=== PATIENT | male | born 1945 | race Caucasian/White ===

== ENCOUNTER 2019-08-16 07:40 | Outpatient (CLI) | payer MEDICARE, BC ==
[2019-08-16 07:58] LABS: EOSINOPHILS # (AUTO) 0.1 10^3/uL (0.0-0.7); EOSINOPHILS % (AUTO) 2.9 %; HGB - HEMOGLOBIN 15.4 g/dL (14.0-18.0); LYMPHOCYTES # (AUTO) 1.4 10^3/uL (1.5-3.5); LYMPHOCYTES % (AUTO) 34.1 %; MEAN CORPUSCULAR HEMOGLOBIN 30.5 pg (27.0-31.0); MEAN CORPUSCULAR HGB CONC 34.2 g/dL (32.0-36.0); MEAN CORPUSCULAR VOLUME 89.1 fL (80.0-94.0); MEAN PLATELET VOLUME 9.5 fL (7.4-11.4); MONOCYTES # (AUTO) 0.4 10^3/uL (0.0-1.0); MONOCYTES % (AUTO) 10.5 %; NEUTROPHILS # (AUTO) 2.1 10^3/uL (1.5-6.6); NEUTROPHILS % (AUTO) 51.3 %; PLT - PLATELET COUNT 155 10^3/uL (130-450); RED BLOOD COUNT 5.05 10^6/uL (4.70-6.10); WHITE BLOOD COUNT 4.1 x10^3/uL (4.8-10.8)
[2019-08-16 08:11] LABS: ALBUMIN 4.5 g/dL (3.2-5.5); ALBUMIN/GLOBULIN RATIO 1.9 (1.0-2.2); ALKALINE PHOSPHATASE 64 IU/L (42-121); ALT ALANINE AMINOTRANSFERASE 13 IU/L (10-60); AST ASPARTATE AMINOTRANSFERASE 21 IU/L (10-42); BILIRUBIN,TOTAL 1.2 mg/dL (0.2-1.0); BUN - BLOOD UREA NITROGEN 18 mg/dL (6-20); CALCIUM 8.9 mg/dL (8.5-10.3); CARBON DIOXIDE - CO2 30 mmol/L (21-32); CHLORIDE 102 mmol/L (101-111); CHOLESTEROL 214 mg/dL; CREATININE 0.9 mg/dL (0.6-1.2); GLUCOSE 105 mg/dL (70-100); HDL CHOLESTEROL 54 mg/dL; LDL CHOLESTEROL,CALCULATED 142 mg/dL; LDL/HDL RATIO 2.6 (<3.6); MAGNESIUM 2.3 mg/dL (1.7-2.8); SODIUM 139 mmol/L (135-145); TOTAL PROTEIN 6.9 g/dL (6.7-8.2); VLDL CHOLESTEROL 18 mg/dL
== END 2019-08-16 07:41 | disposition home or self-care (01) ==
LOC: LAB 07:40
PROVIDERS: ATTEND Nurse Practitioner
DX: I10 Essential (primary) hypertension (principal); Z79.899 Other long term (current) drug therapy; R25.1 Tremor, unspecified
CPT/HCPCS: 36415; 80053; 80061; 83721; 83735; 85025

== ENCOUNTER 2021-07-10 14:18 | Emergency (ER) | payer BC, MEDICARE ==
--- NOTE | 2021-07-10 14:37 | ED Physician Documentation ---
PD HPI FOCAL NEURO - Stated complaint Stated Complaint: LOSS OF SPEECH - Chief complaint Chief Complaint: Neuro - History obtained from History obtained from: Patient - History of Present Illness Timing - onset: Yesterday (while on trip in [place]. Occured just prior to needing to go to airport so did not seek care there, but came to ER after arriving at airport this morning.), How many weeks ago (1 week ago while taking a walk, and about a month ago while talking on the phone.) Timing - duration: Minutes Timing - details: Abrupt onset, Intermittant Severity of deficit: Moderate (He has had 3 episodes over a month where he was speaking and noted a feeling of lightheadedness and then had difficulty with word search and then expressing sentences. He was able to articulate the words once they came out. No focal weakness or loss of vision. Each episode lasted 2-3 minutes.) Weakness: No: Face, Arm, Leg Numbness: No: Face, Arm, Leg Associated symptoms: No: Headache, Nausea / vomiting, Head injury, Chest pain Contributing factors: negative: Anticoagulated, Vascular dz, Atrial fibrillation Similar symptoms before: No diagnosis Recently seen: Not recently seen Review of Systems Constitutional: denies: Fever Eyes: denies: Loss of vision, Decreased vision Nose: denies: Rhinorrhea / runny nose, Congestion Throat: denies: Sore throat Cardiac: denies: Chest pain / pressure, Palpitations Respiratory: denies: Cough GI: denies: Nausea, Vomiting, Diarrhea Neurologic: denies: Focal weakness, Numbness, Near syncope, Headache, Head injury PD PAST MEDICAL HISTORY - Past Medical History Cardiovascular: None Respiratory: None Neuro: Parkinson's Endocrine/Autoimmune: None GI: None - Present Medications Home Medications: Ambulatory Orders Medication Instructions Recorded Confirmed Diazepam [Valium] 5 mg PO PRN PRN 07/10/21 07/10/21 lisinopriL [Zestril] 1 tab ORAL DAILY 07/10/21 07/10/21 rOPINIRole [Requip] 0.25 mg PO QPM 07/10/21 07/10/21 - Allergies Allergies/Adverse Reactions: Allergies Allergy/AdvReac Type Severity Reaction Status Date / Time No Known Drug Allergies Allergy Verified 07/10/21 14:30 PD ED PE NORMAL - Vitals Vital signs reviewed: Yes - General General: Alert and oriented X 3, No acute distress, Well developed/nourished - HEENT HEENT: PERRL, EOMI, Pharynx benign - Neck Neck: Supple, no meningeal sign, No adenopathy, No bruit - Cardiac Cardiac: RRR, No murmur - Respiratory Respiratory: Clear bilaterally - Derm Derm: Normal color, Warm and dry - Neuro Neuro: Alert and oriented X 3, digital communications manager 2-12 intact, No motor deficit, No sensory deficit, Normal speech, Other Eye Opening: Spontaneous Motor: Obeys Commands Verbal: Oriented GCS Score: 15 NIHSS - Level of Consciousness Level of consciousness: (0) Alert, Keenly responsive LOC Questions: (0) Answers both Q's correct LOC Commands: (0) Performs both correctly - Gaze Best Gaze: (0) Normal - Visual Visual: (0) No loss - Facial Palsy Facial Palsy: (0) Normal, symmetrical movement - Motor Arms (both separate) Motor Arm (right): (0) No drift Motor Arm (left): (0) No drift - Motor Legs (both separate) Motor Leg (right): (0) No drift Motor Leg (left): (0) No drift - Limb Ataxia Limb Ataxia: (0) Absent - Sensory Sensory: (0) Normal - Best Language Best Language: (0) No aphasia - Dysarthria Dysarthria: (0) Normal - Extinction and Inattention (formally neg Extinction and inattention: (0) No abnormality - Total Score/Results Total Score/Result: 0 Results - Vitals Vitals: Vital Signs - 24 hr 07/10/21 07/10/21 07/10/21 14:26 14:37 16:36 Temperature 36.2 C L Heart Rate 60 55 L 53 L Respiratory 16 18 14 Rate Blood Pressure 148/52 H 137/58 H 130/60 O2 Saturation 100 100 100 Oxygen O2 Source Room air - EKG (time done) 15:16 Rate: Rate (enter#) Rhythm: NSR [place]: Normal Intervals: Normal NV QRS: Normal Ischemia: Normal ST segments. No: ST elevation c/w ischemia, ST depression - Labs Labs: Laboratory Tests 07/10/21 07/10/21 15:29 15:29 WBC 4.2 L RBC 4.44 L Hgb 13.4 L Hct 40.3 L MCV 90.8 MCH 30.2 MCHC 33.3 RDW 13.2 Plt Count 139 MPV 10.2 Neut # (Auto) 2.6 Lymph # (Auto) 0.9 L [place] # (Auto) 0.5 Eos # (Auto) 0.2 Baso # (Auto) 0.0 Absolute Nucleated RBC 0.00 Nucleated RBC % 0.0 Sodium 140 Potassium 3.9 Chloride 102 Carbon Dioxide 30 Anion Gap 8.0 BUN 24 H Creatinine 0.9 Estimated GFR (MDRD) 82 L Glucose 91 Calcium 9.0 Total Bilirubin 0.6 AST 25 ALT 16 Alkaline Phosphatase 61 Total Protein 6.6 L Albumin 4.3 Globulin 2.3 Albumin/Globulin Ratio 1.9 Lipase 27 - Rads (name of study) head and neck angio Radiology: Prelim report reviewed (No hemorrhage, masses, midline shift or areas of infarction. No flow limitations in anterior nor posterior circulations. No acute process.), See rad report PD MEDICAL DECISION MAKING - ED course Complexity details: reviewed results (No acute structural abnormality on the head CT. No flow limitations in the neck or head. We will treat with aspirin daily and have him follow-up with his neurologist.), considered differential (Expressive aphasia for several minutes that resolved yesterday and the week prior. Concerning for TIA. Does not sound seizure-like. Will evaluate with head and neck CTA as well as labs.), d/w patient Departure - Departure Disposition: 01 Home, Self Care Clinical Impression: Expressive aphasia, TIA (transient ischemic attack) Condition: Stable Record reviewed to determine appropriate education?: Yes Instructions: ED Transient Ischemic Attack Follow-Up: Luz Houston MD [Primary Care Provider] - Comments: Your head and neck CT scans did not show any structural abnormalities such as tumors bleeding or obvious prior strokes. There are no flow limitations in the neck or head on the dye contrast aspect of the scan. This does not really assess the idea of small vessel abnormalities that may have flow limitations intermittently. (TIA). Be sure to maintain good hydration. Continue usual medications. Add a baby aspirin 81 mg daily regularly. Follow-up with your neurologist and primary care regarding any further recommendations or treatments. Return if recurrent symptoms.
[2021-07-10] MEDS ORDERED: SODIUM CHLORIDE 0.9% 1,000 ML IV STA (15:06)
[2021-07-10] MEDS ORDERED: IOVERSOL 320 100 ML VIAL IVP ONE ×2 (15:19→16:21)
[2021-07-10 15:41] LABS: BASOPHILS % (AUTO) 0.5 %; EOSINOPHILS # (AUTO) 0.2 10^3/uL (0.0-0.7); EOSINOPHILS % (AUTO) 3.8 %; HCT - HEMATOCRIT 40.3 % (42.0-52.0); HGB - HEMOGLOBIN 13.4 g/dL (14.0-18.0); LYMPHOCYTES # (AUTO) 0.9 10^3/uL (1.5-3.5); LYMPHOCYTES % (AUTO) 22.1 %; MEAN CORPUSCULAR HEMOGLOBIN 30.2 pg (27.0-31.0); MEAN CORPUSCULAR HGB CONC 33.3 g/dL (32.0-36.0); MEAN CORPUSCULAR VOLUME 90.8 fL (80.0-94.0); MEAN PLATELET VOLUME 10.2 fL (7.4-11.4); MONOCYTES # (AUTO) 0.5 10^3/uL (0.0-1.0); MONOCYTES % (AUTO) 12.4 %; NEUTROPHILS # (AUTO) 2.6 10^3/uL (1.5-6.6); NEUTROPHILS % (AUTO) 61.2 %; PLT - PLATELET COUNT 139 10^3/uL (130-450); RED BLOOD COUNT 4.44 10^6/uL (4.70-6.10); RED CELL DISTRIBUTION WIDTH 13.2 % (12.0-15.0); WHITE BLOOD COUNT 4.2 x10^3/uL (4.8-10.8)
[2021-07-10 15:52] LABS: ALBUMIN 4.3 g/dL (3.2-5.5); ALBUMIN/GLOBULIN RATIO 1.9 (1.0-2.2); BILIRUBIN,TOTAL 0.6 mg/dL (0.2-1.0); CREATININE 0.9 mg/dL (0.6-1.2); POTASSIUM 3.9 mmol/L (3.5-5.0); TOTAL PROTEIN 6.6 g/dL (6.7-8.2)
--- NOTE | 2021-07-10 16:35 | CT Report ---
PROCEDURE: ANGIO NECK W INDICATIONS: L sided facial droop, L neck pain CONTRAST: IV CONTRAST: Optiray 320 ml: 80 PO CONTRAST: *NO PO CONTRAST TECHNIQUE: After the administration of intravenous contrast, 1.5 mm axial sections acquired from the aortic arch to the [place] of [place]. Coronal 3-D maximum intensity projection (MIP) and/or volume rendering ref ormats were then performed. For radiation dose reduction, the following was used: automated exposur e control, adjustment of mA and/or kV according to patient size. COMPARISON: MRA head 07/10/2021. FINDINGS: Image quality: Excellent. Carotid system: The great vessels demonstrate a conventional anatomy as they arise from the aortic a rch. The origins of the common carotid arteries appear patent. The common carotid arteries demonstr ate normal calibers and courses. The bifurcation regions appear normal bilaterally. The internal ca rotid arteries demonstrate normal caliber and course. Calcifications present left artery stenosis. Posterior circulation: The origins of the vertebral arteries appear patent. The more superior porti ons of the vertebral arteries demonstrate normal course and caliber. They join to form a normal appe aring basilar artery. Posterior circulation is codominant. Soft tissues: Visualized neck soft tissues demonstrate no suspicious abnormalities. The thyroid is normal in size and there are no incidental findings. Bones: No suspicious bony lesions. Visualized cervical spine appears normally aligned. IMPRESSION: There are no areas of hemodynamically significant stenosis, vascular occlusion or aneurysmal dilation within the neck vasculature. The estimate of stenosis included in the report of the imaging study was calculated using the NASCET method CLINICAL RECOMMENDATION STATEMENTS: In patients <35 years with an ITN detected on CT, MRI, or extrathyroidal ultrasound, the Committee re commends further evaluation with dedicated thyroid ultrasound if the nodule is "e1 cm and has no susp icious imaging features, and if the patient has normal life expectancy. In patients "e35 years with an ITN detected on CT, MRI, or extrathyroidal ultrasound, the Committee r ecommends further evaluation with dedicated thyroid ultrasound if the nodule is "e1.5 cm and has no s uspicious imaging features, and if the patient has normal life expectancy. (ACR, 2014) Reviewed by: Soledad Josue MD on 07/10/2021 4:33 PM PDT Approved by: Soledad Josue MD on 07/10/2021 4:33 PM PDT Station ID: [id number]
--- NOTE | 2021-07-10 16:36 | CT Report ---
PROCEDURE: ANGIO HEAD W/WO INDICATIONS: L sided facial droop CONTRAST: IV CONTRAST: Optiray 320 ml: 80 PO CONTRAST: *NO PO CONTRAST TECHNIQUE: Precontrast 4.5 mm thick angled axial sections acquired from the foramen magnum to the vertex. Afte r the administration of intravenous contrast, 1 mm thick sections acquired through the [place] of [place] is. Postcontrast 4.5 mm thick sections then re-acquired from the foramen magnum to the vertex. 3-di mensional zjmbjnb-lkafegqeq-yzatrlajth (MIP) and/or volume rendering reformats were acquired of the c entral intracranial vasculature. For radiation dose reduction, the following was used: automated ex posure control, adjustment of mA and/or kV according to patient size. COMPARISON: MRA neck 07/10/2021 FINDINGS: Image quality: Excellent. Anterior circulation: Intracranial internal carotid arteries are normal in size and flow. The flow within the paired anterior cerebral arteries is normal and symmetric. The flow within the middle cer ebral arteries is normal and symmetric. The anterior communicating artery is seen. No aneurysms are seen. Posterior circulation: Visualized portions of the vertebral arteries demonstrate normal caliber, and join to form a normal appearing basilar artery. Flow within the posterior cerebral arteries is norm al and symmetric. No aneurysms are seen. The ventricular system and cortical sulci demonstrate atrophy, consistent for patient's stated age. There are areas of hypodensity in the periventricular and subcortical white matter. There is no acut e intra or extra-axial fluid collection. No acute hemorrhage, mass lesion or midline shift. Brainst em is unremarkable. Globes are symmetrical. Sinuses are aerated. Osseous structures are intact. IMPRESSION: No areas of hemodynamically significant stenosis, vascular occlusion or aneurysmal dilation within th e anterior circulation. No areas of hemodynamically significant stenosis, vascular occlusion or aneurysmal dilation within th e posterior circulation. Reviewed by: Soledad Josue MD on 07/10/2021 4:34 PM PDT Approved by: Soledad Josue MD on 07/10/2021 4:34 PM PDT Station ID: [id number]
[2021-07-10] MEDS ORDERED: ASPIRIN CHEW 81 MG TABLET PO STA (16:46)
[2021-07-10 17:05] VITALS: BP 128/78
== END 2021-07-10 17:03 | disposition home or self-care (01) ==
LOC: ED 14:18
DX: G45.9 Transient cerebral ischemic attack, unspecified (principal); R47.01 Aphasia
CPT/HCPCS: 36415; 70496; 70498; 80053; 83690; 85025; 93005; 99284; A9270; Q9967

== ENCOUNTER 2021-10-08 08:00 | Outpatient (CLI) | payer MEDICARE, BC ==
[2021-10-08 16:10] LABS: BASOPHILS % (AUTO) 0.5 %; EOSINOPHILS # (AUTO) 0.2 10^3/uL (0.0-0.7); EOSINOPHILS % (AUTO) 5.9 %; HCT - HEMATOCRIT 45.2 % (42.0-52.0); HGB - HEMOGLOBIN 14.8 g/dL (14.0-18.0); LYMPHOCYTES % (AUTO) 25.5 %; MEAN CORPUSCULAR HEMOGLOBIN 30.1 pg (27.0-31.0); MEAN CORPUSCULAR HGB CONC 32.7 g/dL (32.0-36.0); MEAN CORPUSCULAR VOLUME 91.9 fL (80.0-94.0); MEAN PLATELET VOLUME 10.5 fL (7.4-11.4); MONOCYTES # (AUTO) 0.4 10^3/uL (0.0-1.0); MONOCYTES % (AUTO) 10.2 %; NEUTROPHILS # (AUTO) 2.1 10^3/uL (1.5-6.6); NEUTROPHILS % (AUTO) 57.6 %; PLT - PLATELET COUNT 149 10^3/uL (130-450); RED BLOOD COUNT 4.92 10^6/uL (4.70-6.10); RED CELL DISTRIBUTION WIDTH 12.9 % (12.0-15.0); WHITE BLOOD COUNT 3.7 x10^3/uL (4.8-10.8)
[2021-10-08 16:26] LABS: ALBUMIN 4.3 g/dL (3.2-5.5); ALBUMIN/GLOBULIN RATIO 1.8 (1.0-2.2); ALKALINE PHOSPHATASE 71 IU/L (42-121); ALT ALANINE AMINOTRANSFERASE 15 IU/L (10-60); AST ASPARTATE AMINOTRANSFERASE 23 IU/L (10-42); BILIRUBIN,TOTAL 1.1 mg/dL (0.2-1.0); BUN - BLOOD UREA NITROGEN 20 mg/dL (6-20); CALCIUM 9.1 mg/dL (8.5-10.3); CARBON DIOXIDE - CO2 31 mmol/L (21-32); CHLORIDE 99 mmol/L (101-111); CHOL/HDL RATIO 3.3 (<5.0); CHOLESTEROL 206 mg/dL; CREATININE 0.9 mg/dL (0.6-1.2); GFR - MDRD 82 (>89); GLUCOSE 93 mg/dL (70-100); HDL CHOLESTEROL 63 mg/dL; LDL CHOLESTEROL,CALCULATED 124 mg/dL; SODIUM 138 mmol/L (135-145); TOTAL PROTEIN 6.7 g/dL (6.7-8.2); TRIGLYCERIDES 95 mg/dL; VLDL CHOLESTEROL 19 mg/dL
== END 2021-10-08 23:59 | disposition home or self-care (01) ==
LOC: LAB.R 08:00
PROVIDERS: ATTEND Internal Medicine
DX: Z00.00 Encounter for general adult medical examination without abnormal findings (principal); I10 Essential (primary) hypertension; G20 Parkinson's disease; I47.1 Supraventricular tachycardia; Z79.899 Other long term (current) drug therapy
CPT/HCPCS: 80053; 80061; 83721; 84443; 85025

== ENCOUNTER 2022-10-10 07:33 | Outpatient (CLI) | payer MEDICARE, BC ==
[2022-10-10 07:44] LABS: BASOPHILS % (AUTO) 0.8 %; EOSINOPHILS # (AUTO) 0.2 10^3/uL (0.0-0.7); EOSINOPHILS % (AUTO) 4.3 %; HCT - HEMATOCRIT 42.9 % (42.0-52.0); HGB - HEMOGLOBIN 14.5 g/dL (14.0-18.0); LYMPHOCYTES # (AUTO) 1.1 10^3/uL (1.5-3.5); LYMPHOCYTES % (AUTO) 26.5 %; MEAN CORPUSCULAR HEMOGLOBIN 30.5 pg (27.0-31.0); MEAN CORPUSCULAR HGB CONC 33.8 g/dL (32.0-36.0); MEAN CORPUSCULAR VOLUME 90.1 fL (80.0-94.0); MEAN PLATELET VOLUME 9.8 fL (7.4-11.4); MONOCYTES # (AUTO) 0.5 10^3/uL (0.0-1.0); MONOCYTES % (AUTO) 11.6 %; NEUTROPHILS # (AUTO) 2.2 10^3/uL (1.5-6.6); NEUTROPHILS % (AUTO) 56.5 %; PLT - PLATELET COUNT 135 10^3/uL (130-450); RED BLOOD COUNT 4.76 10^6/uL (4.70-6.10); RED CELL DISTRIBUTION WIDTH 13.6 % (12.0-15.0)
[2022-10-10 08:03] LABS: ALBUMIN 4.1 g/dL (3.2-5.5); ALKALINE PHOSPHATASE 63 IU/L (42-121); ALT ALANINE AMINOTRANSFERASE 18 IU/L (10-60); AST ASPARTATE AMINOTRANSFERASE 23 IU/L (10-42); BILIRUBIN,DIRECT 0.2 mg/dL (0.1-0.5); BILIRUBIN,TOTAL 1.1 mg/dL (0.2-1.0); CHOL/HDL RATIO 2.4 (<5.0); CHOLESTEROL 190 mg/dL; HDL CHOLESTEROL 78 mg/dL; LDL CHOLESTEROL,CALCULATED 97 mg/dL; LDL/HDL RATIO 1.2 (<3.6); TOTAL PROTEIN 6.9 g/dL (6.7-8.2); TRIGLYCERIDES 74 mg/dL; VLDL CHOLESTEROL 15 mg/dL
[2022-10-10 08:16] LABS: THYROID STIMULATING HORMONE 2.75 uIU/mL (0.34-5.60)
== END 2022-10-10 07:34 | disposition home or self-care (01) ==
LOC: LAB 07:33
PROVIDERS: ATTEND Internal Medicine
DX: Z00.00 Encounter for general adult medical examination without abnormal findings (principal); I10 Essential (primary) hypertension; G20 Parkinson's disease; G25.81 Restless legs syndrome; R56.9 Unspecified convulsions; Z79.899 Other long term (current) drug therapy
CPT/HCPCS: 36415; 80061; 80076; 83721; 84443; 85025

== ENCOUNTER 2023-04-05 15:02 | Outpatient (CLI) | payer OTHER, MEDICARE, BC | END 2023-04-05 15:03 | disposition critical access hospital (66) | LOC: EMS 15:02 | DX: M54.2 Cervicalgia (principal); R07.89 Other chest pain; V48.5XXA Car driver injured in noncollision transport accident in traffic accident, initial encounter; Y92.414 Local residential or business street as the place of occurrence of the external cause | CPT/HCPCS: A0425; A0429 ==

== ENCOUNTER 2023-04-05 15:11 | Emergency (ER) | payer OTHER, MEDICARE, BC ==
[2023-04-05] MEDS ORDERED: ACETAMINOPHEN 500 MG TABLET PO STA (15:17)
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
[2023-04-05] MEDS ORDERED: HYDROmorphone 1 MG/ML CARPUJECT IVP STA ×3 (16:17→21:28)
[2023-04-05 16:36] LABS: BASOPHILS % (AUTO) 0.3 %; EOSINOPHILS % (AUTO) 0.7 %; HGB - HEMOGLOBIN 13.9 g/dL (14.0-18.0); LYMPHOCYTES # (AUTO) 0.5 10^3/uL (1.5-3.5); LYMPHOCYTES % (AUTO) 8.1 %; MEAN CORPUSCULAR HEMOGLOBIN 30.2 pg (27.0-31.0); MEAN CORPUSCULAR HGB CONC 33.9 g/dL (32.0-36.0); MEAN CORPUSCULAR VOLUME 88.9 fL (80.0-94.0); MEAN PLATELET VOLUME 10.1 fL (7.4-11.4); MONOCYTES # (AUTO) 0.1 10^3/uL (0.0-1.0); MONOCYTES % (AUTO) 1.5 %; NEUTROPHILS # (AUTO) 5.3 10^3/uL (1.5-6.6); NEUTROPHILS % (AUTO) 87.7 %; PLT - PLATELET COUNT 130 10^3/uL (130-450); RED BLOOD COUNT 4.61 10^6/uL (4.70-6.10); RED CELL DISTRIBUTION WIDTH 13.3 % (12.0-15.0)
[2023-04-05 16:49] LABS: ALBUMIN 4.3 g/dL (3.2-5.5); BILIRUBIN,TOTAL 0.7 mg/dL (0.2-1.0); CALCIUM 9.3 mg/dL (8.5-10.3); POTASSIUM 4.1 mmol/L (3.5-4.5); TOTAL PROTEIN 6.5 g/dL (6.4-8.9)
[2023-04-05] MEDS ORDERED: KETOROLAC 15 MG/ML VIAL IVP STA (17:24)
--- NOTE | 2023-04-05 17:35 | CT Report ---
PROCEDURE: CHEST WO INDICATIONS: chest inj TECHNIQUE: Noncontrast 1mm axial images were acquired from the pulmonary apices to the posterior costophrenic an gles. Axial 5 mm soft tissue kernel reconstructions were performed as well as 8 mm axial MIP and cor onal and sagittal 5 mm reformations. For radiation dose reduction, the following was used: automate d exposure control, adjustment of mA and/or kV according to patient size. COMPARISON: Correlation is made with the accompanying lumbar spine CT. FINDINGS: Image quality: Diagnostic Lungs and pleura: No consolidation. No pleural effusions. No pneumothorax. No suspicious pulmonary n odules which require follow up. Mediastinum: Moderate coronary calcification is seen. Heart size is normal. No pericardial effusion. No large vessel abnormality. No mediastinal adenopathy by size criteria. Chest wall and lower neck: Thyroid is unremarkable. No axillary or supraclavicular adenopathy by size . Bones: There is a fracture of T11 seen through the superior aspect of this vertebral body as well as within the posterior elements. This can be seen on series 8 image 35. No posterior displacement of fr acture fragments can be seen. There is a remote mild anterior wedge deformity seen of T10. There is accentuated thoracic kyphosis. Age-appropriate degenerative changes are seen. Upper Abdomen: Unremarkable. IMPRESSION: T11 fracture seen, including involving the posterior elements. No posterior fracture fragments is see n. If it would be helpful for clinical management decision making, please consider a dedicated thoracic spine MRI for further evaluation (assuming that there is no contraindication). There is a remote T10 compression deformity. Accentuated thoracic kyphosis can be seen. Additional findings: Moderate coronary calcification Reviewed by: Ramos Luna MD on 04/05/2023 4:34 PM [place] Approved by: Ramos Luna MD on 04/05/2023 4:34 PM [facility] Station ID: [id number]
--- NOTE | 2023-04-05 17:40 | CT Report ---
PROCEDURE: LUMBAR SPINE WO INDICATIONS: back inj TECHNIQUE: Noncontrast 3 mm thick sections acquired from the T12 level to the sacrum. Sagittal and coronal refo rmats were constructed. For radiation dose reduction, the following was used: automated exposure co ntrol, adjustment of mA and/or kV according to patient size. COMPARISON: Correlation is made with the accompanying CT examinations. FINDINGS: Image quality: Excellent. Bones: There is a mild compression of arteries seen involving the superior aspect of the L1 vertebra l body, with 15% loss of height, as on series 8 image 41 and on series 5 image 32. No posterior displ acement of fracture fragments can be seen. No additional lumbar spine fracture is seen. Mild to moderate dextroconvex thoracolumbar scoliosis is seen. No suspicious lytic or blastic bony lesions. Central No pars defects. T12-L1: The disc height is relatively well preserved. Mild disc bulge is seen. There is at least mo derate left-sided and mild right-sided neuroforaminal narrowing. No significant central canal narrowi ng is seen. L1-L2: The disc height is well-preserved. Mild disc bulge is seen. There is moderate right-sided and mild to moderate left-sided neuroforaminal narrowing. No central canal narrowing is seen. L2-L3: Mild loss of disc height is seen. Endplate irregularity and sclerosis can be seen. Moderat e disc bulge is seen at this level. Mild facet hypertrophy is seen. There is at least moderate right -sided and moderate left-sided neuroforaminal narrowing. No central canal narrowing is seen. L3-L4: The disc height is well-preserved. Mild disc bulge is seen. Mild facet hypertrophy is se en. Moderate bilateral neural foraminal narrowing is seen. No central canal narrowing is seen. L4-L5: The disc height is well-preserved. Mild disc bulge is seen. Moderate facet hypertrophy i s seen. At least moderate bilateral neuroforaminal narrowing is seen. Mild central canal narrowing i s seen. L5-S1: Mild loss of disc height is seen. Mild disc bulge is seen. Moderate facet hypertrophy is s een. There is mild to moderate left-sided and no right-sided neuroforaminal narrowing. No central can al narrowing is seen. Soft tissues: No retroperitoneal masses or hematomas. Visualized aorta is normal in caliber. IMPRESSION: L1 superior endplate compression deformity, with 15% loss of height. No posterior displacement of fra cture fragments can be seen. Mild to moderate dextroconvex scoliotic curvature is seen. Underlying lumbar spine degenerative changes are seen. Reviewed by: Ramos Luna MD on 04/05/2023 4:38 PM [place] Approved by: Ramos Luna MD on 04/05/2023 4:38 PM [facility] [[email or web address]] Station ID: [id number]
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
[2023-04-05 22:20] VITALS: BP 106/58; O2SAT 92
== END 2023-04-05 22:26 | disposition short-term general hospital (02) ==
LOC: EDUNIT# → ED 15:11
DX: S12.101A Unspecified nondisplaced fracture of second cervical vertebra, initial encounter for closed fracture (principal); S12.490A Other displaced fracture of fifth cervical vertebra, initial encounter for closed fracture; S22.080A Wedge compression fracture of T11-T12 vertebra, initial encounter for closed fracture; V49.9XXA Car occupant (driver) (passenger) injured in unspecified traffic accident, initial encounter; Y92.410 Unspecified street and highway as the place of occurrence of the external cause; G20.A1 Parkinson's disease without dyskinesia, without mention of fluctuations; Z79.899 Other long term (current) drug therapy
CPT/HCPCS: 36415; 80053; 85025; 87635; 96374; 96375; 96376; 99285

== ENCOUNTER 2023-05-19 15:04 | Outpatient (CLI) | payer MEDICARE, BC ==
--- NOTE | 2023-05-19 20:39 | XRAY Report ---
PROCEDURE: Cervical Spine 4-5V INDICATIONS: DISLOCATION OF UNSPECIFIED CERVICAL VERTEBRAE TECHNIQUE: 4 views of the cervical spine acquired. COMPARISON: CT of cervical spine dated 04/05/2023. FINDINGS: Bones: Patient is status post interval view posterior fusion of C4-C6 levels with surgical hardware i n place. Straightening of normal cervical lordosis is seen. Patient's known minimally displaced fract ure through bilateral posterior elements of C2 is better evaluated on previous CT study. No gross shima dware loosening or failure. No new fracture or dislocation. Soft tissues: No prevertebral soft tissue swelling. IMPRESSION: Post fusion changes at C4-C6 levels. Straightening of normal cervical lordosis. Minimally displaced f ractures involving posterior elements of C2 vertebral body. No new fracture or dislocation. No gross hardware loosening or failure. Reviewed by: Levon Soto MD on 05/19/2023 8:38 PM PST Approved by: Levon Soto MD on 05/19/2023 8:38 PM PST Station ID: [id number]
== END 2023-05-19 15:05 | disposition home or self-care (01) ==
LOC: DI 15:04
DX: S13.101A Dislocation of unspecified cervical vertebrae, initial encounter (principal); M48.52XD Collapsed vertebra, not elsewhere classified, cervical region, subsequent encounter for fracture with routine healing; Z98.1 Arthrodesis status

== ENCOUNTER 2023-10-02 13:36 | Emergency (ER) | payer MEDICARE, BC ==
[2023-10-02 14:01] LABS: BASOPHILS % (AUTO) 0.6 %; EOSINOPHILS # (AUTO) 0.1 10^3/uL (0.0-0.7); EOSINOPHILS % (AUTO) 2.4 %; HCT - HEMATOCRIT 39.5 % (42.0-52.0); HGB - HEMOGLOBIN 12.8 g/dL (14.0-18.0); LYMPHOCYTES # (AUTO) 0.9 10^3/uL (1.5-3.5); MEAN CORPUSCULAR HEMOGLOBIN 30.5 pg (27.0-31.0); MEAN CORPUSCULAR HGB CONC 32.4 g/dL (32.0-36.0); MEAN PLATELET VOLUME 9.8 fL (7.4-11.4); MONOCYTES # (AUTO) 0.5 10^3/uL (0.0-1.0); MONOCYTES % (AUTO) 10.1 %; NEUTROPHILS # (AUTO) 3.1 10^3/uL (1.5-6.6); NEUTROPHILS % (AUTO) 66.7 %; PLT - PLATELET COUNT 148 10^3/uL (130-450); RED CELL DISTRIBUTION WIDTH 13.2 % (12.0-15.0); WHITE BLOOD COUNT 4.7 x10^3/uL (4.8-10.8)
[2023-10-02 14:12] LABS: ALBUMIN 4.4 g/dL (3.2-5.5); BILIRUBIN,TOTAL 0.8 mg/dL (0.2-1.0); CALCIUM 9.3 mg/dL (8.5-10.3); CREATININE 1.1 mg/dL (0.6-1.3); POTASSIUM 4.1 mmol/L (3.5-4.5); TOTAL PROTEIN 6.6 g/dL (6.4-8.9)
[2023-10-02 15:26] LABS: BILIRUBIN,URINE NEGATIVE (NEGATIVE); GLUCOSE, URINE (UA) NEGATIVE (NEGATIVE); KETONES,URINE (UA) NEGATIVE (NEGATIVE); LEUKOCYTE ESTERASE, URINE NEGATIVE (NEGATIVE); NITRITE,URINE NEGATIVE (NEGATIVE); OCCULT BLOOD,URINE NEGATIVE (NEGATIVE); PH,URINE 6.5 PH (5.0-7.5); PROTEIN,URINE NEGATIVE (NEGATIVE); UROBILINOGEN,URINE 0.2 (NORMAL) E.U./dL (NORMAL)
[2023-10-02 15:28] LABS: CLARITY,URINE CLEAR (CLEAR)
--- NOTE | 2023-10-02 16:07 | ED Physician Documentation ---
History of Present Illness - Stated complaint Stated Complaint: GI - Chief complaint Chief Complaint: Abd Pain - Additonal information Additional information: 79-year-old male with Parkinson's disease presents emergency department for concerns of dark black bowel movements. Patient says that he has bowel movement about once every 3 to 4 days this has been his norm his whole life and the last 3 bowel movements he has been noticing that the bowel movements have been darker. He had a follow-up appointment with his neurologist today for Parkinson's disease check-in and they told him to come to the emergency department for further evaluation of his dark black bowel movements. He denies any nausea or vomiting he denies any abdominal pain or any other concerning symptoms. PD PAST MEDICAL HISTORY - Past Medical History Cardiovascular: None Respiratory: None Neuro: Parkinson's Endocrine/Autoimmune: None GI: None : None HEENT: Chronic vision loss Psych: None Musculoskeletal: Chronic back pain Derm: None - Past Surgical History Past Surgical History: No Ortho: Spine surgery, Other - Present Medications Home Medications: Ambulatory Orders Medication Instructions Recorded Confirmed lisinopriL [Zestril] 1 tab ORAL QPM 07/10/21 04/05/23 rOPINIRole [Requip] 0.5 mg PO QPM 07/10/21 04/05/23 Carbidopa/Levodopa 1 tab PO TID 04/05/23 04/05/23 [Carbidopa-Levodopa 25-100 Tab] Lamotrigine [Lamictal (Blue)] 1 tab PO BID 04/05/23 04/05/23 - Allergies Allergies/Adverse Reactions: Allergies Allergy/AdvReac Type Severity Reaction Status Date / Time No Known Drug Allergies Allergy Verified 10/02/23 13:43 - Social History Does the pt smoke?: No Smoking Status: Never smoker Does the pt drink ETOH?: Yes Does the pt have substance abuse?: No - Immunizations Immunizations are current?: Yes PD ED PE NORMAL - Vitals Vital signs reviewed: Yes - General General: Alert and oriented X 3, No acute distress, Well developed/nourished - Cardiac Cardiac: RRR - Respiratory Respiratory: No respiratory distress, Clear bilaterally - Abdomen Abdomen: Normal bowel sounds, Soft, Non tender, Non distended, No organomegaly - Psych Psych: Normal mood, Normal affect PD ED PE EXPANDED - Rectal Rectal: Heme Occult Neg - QC+, Normal Tone, Lead Pharmacy Technician present (STEFFANIE Nixon present). No: Mass, Hemorrhoid, Fissure Results - Vitals Vitals: Vital Signs - 24 hr 10/02/23 10/02/23 13:39 16:02 Temperature 36.7 C Heart Rate 65 60 Respiratory 18 18 Rate Blood Pressure 185/74 H 145/67 H O2 Saturation 100 99 Oxygen O2 Source Room air - Labs Labs: Microbiology 10/02/23 15:16 Occult Blood - Final Stool Laboratory Tests 10/02/23 10/02/23 10/02/23 13:54 13:54 15:05 WBC 4.7 L RBC 4.20 L Hgb 12.8 L Hct 39.5 L MCV 94.0 MCH 30.5 MCHC 32.4 RDW 13.2 Plt Count 148 MPV 9.8 Neut # (Auto) 3.1 Lymph # (Auto) 0.9 L [place] # (Auto) 0.5 Eos # (Auto) 0.1 Baso # (Auto) 0.0 Absolute Nucleated RBC 0.00 Nucleated RBC % 0.0 Sodium 142 Potassium 4.1 Chloride 104 Carbon Dioxide 33 H Anion Gap 5.0 L BUN 20 Creatinine 1.1 Estimated GFR (MDRD) 65 L Glucose 136 H Calcium 9.3 Total Bilirubin 0.8 AST 23 ALT 5 L Alkaline Phosphatase 77 Total Protein 6.6 Albumin 4.4 Globulin 2.2 Albumin/Globulin Ratio 2.0 Lipase 16 Urine Color YELLOW Urine Clarity CLEAR Urine pH 6.5 Ur Specific Logan 1.025 Urine Protein NEGATIVE Urine Glucose (UA) NEGATIVE Urine Ketones NEGATIVE Urine Occult Blood NEGATIVE Urine Nitrite NEGATIVE Urine Bilirubin NEGATIVE Urine Urobilinogen 0.2 (NORMAL) Ur Leukocyte Esterase NEGATIVE Ur Microscopic Review NOT INDICATED Urine Culture Comments NOT INDICATED PD Medical Decision Making - ED course ED course: 78-year-old male here to the emergency department for concerns of GI bleed. Labs are complete upon arrival he very mild anemia, hemoglobin 12.8, leukopenia 4.7, normal kidney function, normal urine no other acute abnormal lab findings. On my rectal exam he had no fissures masses or hemorrhoids and normal tone. Gu aiac sample was sent to the lab and it was negative for blood and I did not see any dark black stool on physical exam. At this point time there is no other workup indicated he is told to follow-up with primary care provider as needed and consider taking MiraLAX for constipation. Departure - Departure Disposition: Home, Self Care Clinical Impression: Constipation Instructions: ED Constipation Comments: Thank you for trusting us with your care. Your stool guaiac was negative for blood and your labs were also very reassuring not showing any significant anemia or other significant abnormalities. Please help your primary care provider as needed come back to the ER if you are noticing any worsening [place] bowel movements, nausea vomiting, or any other concerning symptoms. Forms: PCP List Discharge Date/Time: 10/02/23 16:15
[2023-10-02 16:10] VITALS: BP 145/67; O2SAT 99
== END 2023-10-02 16:15 | disposition home or self-care (01) ==
LOC: ED 13:36
DX: K59.00 Constipation, unspecified (principal); G20.A1 Parkinson's disease without dyskinesia, without mention of fluctuations; Z79.899 Other long term (current) drug therapy
CPT/HCPCS: 36415; 80053; 81001; 81003; 82272; 83690; 85025; 87086; 99283